=== PATIENT | male | born 1955 | race Caucasian/White ===

== ENCOUNTER 2018-07-19 04:48 | Inpatient (IN) ==
--- NOTE | 2018-07-14 08:31 | History & Physical Report ---
Date of Service July 14, 2018 Date of Surgery: 07/19/18 Assessment & Plan (1) Osteoarthritis of right knee: Further care discussed with patient and at this point in time has failed conservative measures and would like to proceed with a Right total knee replacement at [facility] on 07-19-18, surgery was initially postponed due to elevated A1C but has since come down to an acceptable level. Plan on discharge will be home with home health physical therapy. DVT prophalaxis with TEDs, SCDs and will also place on aspirin 81 mg p.o. b.i.d. for a month postop. Patient will have follow up appointment in our office two weeks post op for staple removal and re-evaluation. Patient otherwise has no other questions or concerns and would like to proceed with surgical intervention. History of Present Illness Chief Complaint: Right knee pain Primary Care Provider: Cindy Shah DO Mr Jovel is a 62 year old male who complains of right knee pain, presents for pre -op evaluation prior to right total knee replacement at [facility] on 07/19/18. He presents with pain and stiffness on the right side and is chronic non- traumatic. The symptoms occur intermittently and has been gradually worsening. The pain is described as aching and sharp. The symptoms occur intermittently. The patient is experiencing pain in the following location: anterior aspect on the right side. He rates his worst pain as 7/10. He rates his current pain as 3/ 10. The symptoms are aggravated by activities of daily living including walking , standing, ascending stairs, descending stairs and squatting. In addition to right knee pain the patient is also experiencing stiffness and limping. Patient had cortisone injection on 11/18/17 that helped for 2 months at that time. patient has undergone a left total knee replacement in the past and is doing well. Allergies Allergy/AdvReac Type Severity Reaction Status Date / Time Penicillins Allergy Unknown unknown Verified 07/10/18 12:38 Home Medications Home Medications Medication Instructions Recorded Confirmed Type Trulicity 1 dose SC WK 07/10/18 07/10/18 History Vitamin D3 1 dose PO QAM 07/10/18 07/10/18 History aspirin 81 mg PO HS 07/10/18 07/10/18 History atenolol 50 mg PO QAM 07/10/18 07/10/18 History atorvastatin 40 mg PO PM 07/10/18 07/10/18 History duloxetine 30 mg PO QAM 07/10/18 07/10/18 History gabapentin 300 mg PO BID 07/10/18 07/10/18 History lisinopril 20 mg PO QAM 07/10/18 07/10/18 History metformin 1,000 mg PO BID 07/10/18 07/10/18 History Past Med/Surg History Medical History Depression Diabetes mellitus, type 2 Hyperlipidemia Hypertension Osteoarthritis Peripheral neuropathy Surgical History History of colonoscopy History of tooth extraction History of total knee replacement LEFT Family History Brother Family history of diabetes mellitus Father Family history of diabetes mellitus Mother Family history of diabetes mellitus Sister Family history of diabetes mellitus Social History Current Living Situation: Significant Other Other Information That Helps Us Care for You: No Feels Safe at Home: Yes Safety Concerns: Feels Safe At This Time Smoking Status: Never smoker Do You Dip or Chew Tobacco: No Second Hand Exposure: No Hx Alcohol Use: Yes Alcohol Intake Frequency: holidays/special occasions only Hx Substance Use: No Beliefs That Will Affect Care: None Preferred Language: Tunisian Communication Ability: Effective Machine Technician Required: No Review of Systems All systems reviewed & are unremarkable except as noted in HPI & below Physical Exam 2 Vital Signs (Past 24 Hours): BP 152/88 Pulse 82 Constitutional: WD/WN, vitals as above no acute distress Respiratory: normal respiratory effort, lungs clear to auscultation no respiratory distress and no labored breathing Cardiovascular: RRR, no murmur, no edema Heart Sounds: no murmur Gastrointestinal (Abdomen): normal bowel sounds, soft, nontender, no hepatosplenomegaly Musculoskeletal: Right Knee Physical Exam patient ambulates with a slight limp, clinical has neutral alignment, +1 suprapatellar effusion, tenderness present mostly over medial joint line and lesser extent over quad insertion. mild crepitation with motion, negative patellar apprehension , knee is ligamentously stable with valgus and varus stress, Ash's Negative, Guerrero's - medial positive, anterior drawer Negative, no extensor lag, Pain with Active range of motion, also passive painful ROM, Range of motion 0/3/120. No pain with active/passive ROM of ankle. Lower Extremity Strength normal. Lower Extremity Neuro-vascular is normal Skin: no rashes, warm and dry Results & Data Diagnostic Findings Right Knee X-ray: 4 views of the Right knee dated 05/05/18 show advanced degenerative changes to the right knee, with findings showing narrowing of the medial compartment and patello-femoral joint with patellar spurring noted, calcification at quad insertion superior patella, there is osteophyte formation and subchondral sclerosis noted. overall varus alignment. no acute bony pathology noted, no loose bodies.
--- NOTE | 2018-07-14 12:28 | Anesthesiology Consultation ---
Addendum entered and electronically signed by Luiza Wolfe 07/17/18 09:59: Addendum (Blank) Addendum Patient acceptable risk for surgery. Original Note: Date of Service July 14, 2018 Assessment & Plan (1) Encounter for pre-operative examination: Plan: - PCP= 06/28/18= diabetes "at goal" and "may schedule his surgery from my standpoint." - Check BSG AM DOS Chart Review Chart Review: Acceptable Risk for Surgery and Patient seen in Pre Admission Testing Consults Requested none Teaching & Discussion Pre-Anesthesia Teaching/Discussion Notes: Instructed NPO after midnight before surgery,except medications with 15 cc of water. Medication instructions provided according to the PAT guidelines. ASA ASA3 Proposed Anesthesia Anesthesia Type: MAC Spinal Regional Regional Laterality: Right Site: Adductor Canal Risk / Benefits Reviewed With: PT / POA / Parent / Guardian, Accepts Plan and Informed Consent Obtained NPO Date Last Intake of Fluids: 07/18/18 Time Last Intake of Fluids: 21:00 Date Last Intake of Solids: 07/18/18 Time Last Intake of Solids: 21:00 History Surgery Operation Date: 07/19/18 07:00 Proposed Procedures p Right Total Knee Arthroplasty - John Rivera DO Height/Weight Height: 5 ft 8 in Weight: 109.6 kg Allergies Allergy/AdvReac Type Severity Reaction Status Date / Time Penicillins Allergy Unknown unknown Verified 07/19/18 05:42 meloxicam AdvReac KIDNEY Verified 07/19/18 05:42 IMPAIRMENT Medications Home Medications Medication Instructions Recorded Confirmed Last Taken Trulicity 1 dose SC WK 07/10/18 07/19/18 07/14/18 13:00 Vitamin D3 1 dose PO QAM 07/10/18 07/19/18 07/18/18 07:00 aspirin 81 mg PO HS 07/10/18 07/19/18 07/18/18 21:00 atenolol 50 mg PO QAM 07/10/18 07/19/18 07/19/18 04:30 atorvastatin 40 mg PO PM 07/10/18 07/19/18 07/18/18 21:00 duloxetine 30 mg PO QAM 07/10/18 07/19/18 07/19/18 04:30 gabapentin 300 mg PO BID 07/10/18 07/19/18 07/19/18 04:30 lisinopril 20 mg PO QAM 07/10/18 07/19/18 07/18/18 07:00 metformin 1,000 mg PO BID 07/10/18 07/19/18 07/18/18 21:00 Active Medications Generic Name Dose Route Start Last Admin Trade Name Freq PRN Reason Stop Dose Admin Acetaminophen 1,000 mg 07/19/18 06:00 07/19/18 06:19 Tylenol PO 07/19/18 18:00 1,000 mg PREOP MIRELLA Administration Celecoxib 200 mg 07/19/18 06:00 07/19/18 06:26 Celebrex PO 07/19/18 18:00 Not Given PREOP MIRELLA Dexamethasone 8 mg 07/19/18 06:00 07/19/18 06:19 Decadron PO 07/19/18 18:00 8 mg PREOP MIRELLA Administration Famotidine 20 mg 07/19/18 06:00 07/19/18 06:19 Pepcid PO 07/19/18 18:00 20 mg PREOP MIRELLA Administration Gabapentin 600 mg 07/19/18 06:00 07/19/18 06:20 Neurontin PO 07/19/18 18:00 300 mg PREOP MIRELLA Administration Lactated Ringer's 1,000 mls @ 999 mls/hr 07/19/18 06:00 07/19/18 06:01 Lr IV 07/19/18 18:00 999 mls/hr .Q1H1M MIRELLA Administration Beta Romel Beta Romel Taken Within 24 Hours: Yes (2100 07/18/2018) Past Medical History Medical History CKD (chronic kidney disease) Depression Diabetes mellitus, type 2 Hyperlipidemia Hypertension Obesity Osteoarthritis Peripheral neuropathy Past Family History Family History Brother Family history of diabetes mellitus Father Family history of diabetes mellitus Mother Family history of diabetes mellitus Sister Family history of diabetes mellitus Past Surgical History Surgical History History of colonoscopy History of tooth extraction History of total knee replacement LEFT Past Anesthesia History No Hx of Anesthesia Complications and No Family Hx of Anesthesia Complications History of PONV No Motion Sickness Screening History of Motion Sickness: No Social History Smoking Status: Never smoker Do You Dip or Chew Tobacco: No Hx Alcohol Use: Yes alcohol intake frequency: holidays/special occasions only Hx Substance Use: No substance use type: does not use Exercise / Class Metabolic Activity III < 4 Walking/Shop/Light housework Review of Systems Patient denies chest pain, shortness of breath, dyspnea on exertion, wheezing, palpitations. Physical Exam Vital Signs Last Vital Signs Temp 36.5 C 07/19/18 05:59 Pulse 62 07/19/18 05:59 Resp 20 07/19/18 05:59 BP 149/96 H 07/19/18 05:59 Pulse Ox 98 07/19/18 05:59 VITALS BP 107/67 P 55 TEMP 97.8 SP02 97%RA RESP 18 Full neck and c-spine range of motion. Full TMJ range of motion. TMD 3 finger breaths Mallampati Score 2 Dentition: upper partial Lungs: clear throughout to auscultation Cardiac: regular rate and rhythm, no murmurs noted Spine: normal Carotid arteries: negative bruit Extremities: no edema Trimmed ng ENMT Mouth: + dentures Thyromental Distance: > or= 3.5 Finger Breadths Mallampati Class: II Neck normal visual inspection, trachea midline, + short neck, + thick neck and + facial hair Respiratory normal respiratory effort Auscultation: lungs clear to auscultation bilaterally Cardiovascular Rate/Rhythm: regular rate and regular rhythm Heart Sounds: no murmur Vessels: no carotid bruit Musculoskeletal Spine: lumbar spine normal to inspection; normal cervical ROM Neurologic moves all extremities Motor/Sensory: + sensory deficit (LE's-diabetic PN) Psychiatric Orientation: alert and oriented x 3 Testing Electrocardiogram Date: 07/14/18 SB at 59bpm. Laboratory Results 07/14/18 12:45 Blood Type O Positive 07/14/18 12:45 Antibody Screen NEGATIVE 07/14/18 12:45 PT 10.2 Seconds (9.0-12.0) 07/14/18 12:45 INR 1.0 (0.9-1.1) 07/14/18 12:45 APTT 30.1 Seconds (21.0-31.0) 07/14/18 12:45 Urine Color Yellow 07/14/18 Unknown Urine Appearance Clear (Clear) 07/14/18 Unknown Urine pH 5.0 (4.5-7.5) 07/14/18 Unknown Ur Specific [place] 1.022 (1.000-1.030) 07/14/18 Unknown Urine Protein Negative (Negative) 07/14/18 Unknown Urine Glucose (UA) Negative (Negative) 07/14/18 Unknown Urine Ketones Negative (Negative) 07/14/18 Unknown Urine Nitrite Negative (Negative) 07/14/18 Unknown Ur Leukocyte Esterase Negative (Negative) 07/14/18 Unknown 07/14/18 Unknown Urine Culture - Final Urine,Clean Catch Gram positive cocci 07/19/18 05:13 POC Glucose 122 H No sensitivities to follow per urine culture report. 06/22/18 SODIUM 142 POTASSIUM 4.8 CHLORIDE 103 CO2 26 BUN 19 CREATININE 1.5 GLUCOSE 102 HGBA1C 7.2%
--- NOTE | 2018-07-14 12:38 | PAT Medication Instructions ---
Medication Instructions Date of Service July 14, 2018 Home Medications Trulicity 1 dose SC WK Vitamin D3 1 dose PO QAM aspirin 81 mg PO HS atenolol 50 mg PO QAM atorvastatin 40 mg PO PM duloxetine 30 mg PO QAM gabapentin 300 mg PO BID lisinopril 20 mg PO QAM metformin 1,000 mg PO BID Continue as directed Trulicity 1 dose SC WK DO NOT take the morning of surgery Vitamin D3 1 dose PO QAM lisinopril 20 mg PO QAM metformin 1,000 mg PO BID Take morning of surgery With a small sip of water, OTHERWISE NOTHING TO EAT OR DRINK AFTER MIDNIGHT: atenolol 50 mg PO QAM duloxetine 30 mg PO QAM gabapentin 300 mg PO BID Other Notes If you have any questions please call us at [phone] or [phone] or [phone] or [phone]
[2018-07-14 13:46] LABS: Basophils # (auto) 0.04 K/uL (0-0.2); Basophils % (auto) 0.7 %; Eosinophils # (auto) 0.34 K/uL (0-0.5); Eosinophils % (auto) 5.7 %; Hematocrit (blood only) 41.3 % (42-52); Hemoglobin 13.8 g/dL (14.0-18.0); Immature Granulocytes # (auto) 0.01 K/uL (0.00-0.02); Immature Granulocytes % (auto) 0.2 %; Lymphocytes # (auto) 1.91 K/uL (1.2-3.4); Lymphocytes % (auto) 32.2 %; Mean Corpuscular Hgb Conc 33.4 g/dL (32-36); Mean Corpuscular Volume 89.6 fL (80-100); Mean Platelet Volume 10.7 fL (7.4-10.4); Monocytes # (auto) 0.56 K/uL (0.11-0.59); Monocytes % (auto) 9.4 %; Neutrophils # (auto) 3.07 K/uL (1.4-6.5); Neutrophils % (auto) 51.8 %; Platelet Count 239 K/uL (130-400); RDW Coefficient of Variation 13.1 % (11.5-14.5); RDW Standard Deviation 42.6 fL (36.4-46.3); Red Blood Count 4.61 M/uL (4.7-6.1); White Blood Count 5.93 K/uL (4.8-10.8)
[2018-07-14 13:56] LABS: Partial Thromboplastin Ratio 1.2; Partial Thromboplastin Time 30.1 Seconds (21.0-31.0); Prothrombin Time 10.2 Seconds (9.0-12.0)
[2018-07-14 13:57] LABS: Appearance Urine Clear (Clear); Bilirubin Urine Negative (Negative); Color Urine Yellow; Glucose Urine UA Negative (Negative); Ketones Urine Negative (Negative); Leukocyte Esterase Urine Negative (Negative); Nitrite Urine Negative (Negative); Protein Urine Negative (Negative); Specific Gravity Urine 1.022 (1.000-1.030); Urobilinogen Urine Negative (Negative)
[2018-07-19] MEDS ORDERED: GABAPENTIN 300 MG x 2 PO SCH (06:00)
[2018-07-19] MEDS ORDERED: FAMOTIDINE 20 MG TAB PO SCH (06:00)
[2018-07-19] MEDS ORDERED: CLINDAMYCIN 600 MG/54 ML BAG IV SCH ×2 (06:00)
[2018-07-19] MEDS ORDERED: dexAMETHasone 4 MG TAB PO SCH (06:00)
[2018-07-19] MEDS ORDERED: ACETAMINOPHEN 500 MG TAB PO SCH (06:00)
[2018-07-19] MEDS ORDERED: CeleBREX 200 MG CAP PO SCH (06:00)
[2018-07-19] MEDS ORDERED: ROPIVACAINE 0.5% HCL/PF 150 MG, BUPIVACAINE 0.5% MPF 30 ML, EPINEPHrine 30MG/30ML (OR U... INFIL SCH (06:00)
[2018-07-19] MEDS ORDERED: TRANEXAMIC ACID 1,000 MG **IV Pre-op IV SCH (06:00)
[2018-07-19] MEDS: LR 500ML BOLUS, THEN 15ML/HR IV SCH ×3 (06:01→10:46)
[2018-07-19] MEDS ORDERED: BUPIVACAINE 0.5 % 5 MG/1 ML PF 10ML VIAL ONE (06:21)
[2018-07-19] MEDS ORDERED: ROPIVACAINE 0.5% 5 MG/ML 30 ML VIAL ONE (06:22)
[2018-07-19] MEDS ORDERED: EPINEPHrine INJ 1 MG/ML AMP ONE (06:22)
[2018-07-19] MEDS ORDERED: TRANEXAMIC ACID 1,000 MG **IV Intra-op IV SCH (06:30)
[2018-07-19] MEDS ORDERED: ORTHO JOINT ANESTHETIC ONE (06:35)
[2018-07-19] MEDS ORDERED: POVIDONE-IODINE OP SOLN 30 ML BTL ONE (06:35)
[2018-07-19] MEDS ORDERED: BACITRACIN INJ 50,000 UNIT VIAL ONE (06:35)
[2018-07-19] MEDS ORDERED: fentaNYL citrate 100 MCG/2 ML VIAL ONE (06:48)
[2018-07-19] MEDS ORDERED: MIDAZOLAM HCL 1 MG/ML 2ML VIAL ONE (06:48)
--- NOTE | 2018-07-19 07:02 | History & Physical Bridge Note ---
Date of Service July 19, 2018 History & Physical Bridge Note I have examined the patient, reviewed the History & Physical and in the interval since the performance of the History & Physical I have noted the following changes of clinical significance: no changes noted
[2018-07-19] MEDS ORDERED: PROPOFOL IV EMULSION 10 MG/ML 20 ML VIAL IV ONE ×4 (07:15→08:09)
[2018-07-19] MEDS ORDERED: LIDOCAINE HCL 2% 2 ML VIAL/AMP(20MG/ML) INFIL ONE (08:09)
[2018-07-19] MEDS ORDERED: GLYCOPYRROLATE 0.2 MG/ML VIAL ONE (08:09)
--- NOTE | 2018-07-19 08:10 | Operative Report ---
Post Operative Report Pre & Post Diagnosis Operation Date: 07/19/18 07:00 Pre-Op Diagnosis: Right Knee Advanced Degenerative Joint Disease Post-Op Diagnosis: Right Knee Advanced Degenerative Joint Disease Procedure Operation Date: 07/19/18 07:00 Actual Procedures p Right Total Knee Arthroplasty(Right) utilizing journey to non-bloc total knee arthroplasty size 7 femur 7 tibia 12 poly-38 oval patella- John Rivera DO Surgeon John Rivera DO Tube Bender Hand David SHAIKH Estimated Blood Loss 5 Findings Consistent with Post-Op Diagnosis Patient presents with severe end-stage tricompartmental degenerative joint disease right knee varus alignment subchondral cystic changes marginal osteophytes moderate to large effusion 7 degree flexion contracture no response to conservative therapy including physical therapy anti-inflammatories relative rest activity modification corticosteroid injections Visco supplementation patient previously undergone successful left total knee arthroplasty patient presents today for right total knee arthroplasty Specimens Bone and cartilage Drains Medium bore Hemovac Complications none Disposition Accompanied Patient To Recovery: No Disposition: Recovery Room Indications Patient presents as a 62-year-old white male with severe end-stage tricompartmental degenerative joint disease right knee no response to conservative management including physical therapy anti-inflammatories relative rest activity modification corticosteroid injections Visco supplementation the above intraoperative findings of bone to bone eburnation cyst sub-subchondral cystic changes marginal osteophytes were all noted times surgery patient is failed attempts at conservative management as well as bracing presents today for right total knee arthroplasty Description of Procedure After proper prepping and draping of the Right lower extremity anterior midline incision was made over the region of the extensor extensor mechanism after meticulous hemostasis was obtained and maintained in subcutaneous tissues a medial parapatellar incision was made The patella was subluxed lateralward the medial lateral gutter were cleaned from any hypertrophic synovitis and scar tissue of the distal femoral block was placed and the distal femoral osteotomy cut was made subsequently the chamfers anterior and posterior osteotomy cuts were made utilizing the 4-in-1 block the tibia was subsequently subluxed anteriorward medial and ateral meniscal remnants were excised in their entirety remnants of the anterior and posterior cruciate ligaments were excised in their entirety excellent exposure of the proximal tibia was obtained the tibial osteotomy guide was placed on the proximal tibial osteotomy cut was made once again the knee was irrigated with copious amounts of sterile saline solution the patella was subsequently everted lateralward thickened scar tissue around the patella was removed the patella was subsequently cut utilizing a freehand technique and was drilled prepared for final preparation and placement of patella socially flexion-extension gaps were checked and the equal and symmetric trials were placed to the appropriate femoral and tibial trials with poly-spacer being placed for equal flexion and extension gaps and full range of motion including extension to 0 and flexion to 140 the trial components after having been taken to recovery range of motion was subsequently removed meticulous hemostasis was obtained and maintained subsequently a knee block injection of joint cocktail including ropivacaine 0.5% 150 mg. Bupivacaine 0.5 % epinephrine 1-200,030 mL's toradol 30 mg dexamethasone 4 mg ketamine 10 mg clonidine 100 micrograms normal saline solution 30 mg was infiltrated into the soft tissues of the posterior knee medial lateral gutters and periosteal synovium special attention was paid to protect neurovascular structures at all times subsequently trial components having been removed the knee was irrigated with sterile saline solution. debris was removed the proximal tibia was subsequently prepared and was made ready for the placement of the tibial component tibial component was also cemented and tamped into position the femoral component was subsequently placed and cemented in the position the patellar component was subsequently cemented in position because hemostasis once again obtained and maintained wound having been thoroughly irrigated with debridement and debridement lavage was performed as well as a medial parapatellar incision closed with #1 Vicryl in interrupted fashion subcutaneous was closed with #2 Vicryl skin was closed with skin clips. PA-C was necessary for prepping and drapping as well as wound closure of deep fascia Sub cutaneous tissue and skin and was necessary for the case. A sterile compressive dressing was placed patient was taken to recovery in stable condition of report dictated by Miguel I attest to the content of the Intraoperative Record and any orders documented therein. Any exceptions are noted below. I attest to the content of the Intraoperative Record and any orders documented therein. Any exceptions are noted below.
[2018-07-19] MEDS ORDERED: ePHEDrine sulfate 50 MG/ML AMP IV PRN (08:59)
[2018-07-19] MEDS ORDERED: ATROPINE SULFATE 0.1 MG/ML 10ML SYR IV PRN (08:59)
--- NOTE | 2018-07-19 09:27 | XRay Report ---
XR knee RT 2V routine CLINICAL HISTORY: Surgical Post Op DEGENERATIVE ARTHRITIS COMPARISON: 05/05/2018 DISCUSSION: There are postsurgical changes of a total right knee arthroplasty and patellar resurfacin g. There is an overlying surgical drain. There is gas present within the soft tissues consistent with recent surgery. The femoral and tibial components appear well seated. IMPRESSION: Postsurgical changes of a total right knee arthroplasty. Electronically signed by: Luis Rodriguez M.D. 07/19/2018 9:25 AM
--- NOTE | 2018-07-19 09:52 | Anesthesiology Progress Note ---
Date of Service July 19, 2018 Anesthesia Post Procedure Vital Signs Vital Signs: Temp Pulse Pulse Resp BP Pulse Ox 07/19/18 09:40 36.4 C L 68 16 110/71 95 07/19/18 09:30 77 17 97/65 L 95 07/19/18 09:20 77 18 105/63 98 07/19/18 09:10 81 16 113/66 100 07/19/18 09:00 36.6 C 81 19 130/79 95 07/19/18 05:59 36.5 C 62 20 149/96 H 98 Pain Intensity Right Knee: Pain Intensity: 0 Notes Mental Status: alert / awake / arousable Patient Amnestic to Procedure: Yes Nausea / Vomiting: adequately controlled Pain: adequately controlled Airway Patency, RR, SpO2: stable & adequate BP & HR: stable & adequate Hydration State: stable & adequate Neuraxial Anesthesia: was administered and sensory block is resolving Anesthetic Complications: no major complications apparent
[2018-07-19] MEDS ORDERED: HYDROmorphone INJ 0.5 MG/0.5 ML SYR IV PRN (10:24)
[2018-07-19] MEDS ORDERED: ONDANSETRON INJ 2 MG/ML 2 ML VIAL IV PRN (10:24)
[2018-07-19] MEDS ORDERED: NALOXONE HCL 0.4 MG/1 ML VIAL/CARP IV PRN (10:24)
[2018-07-19] MEDS ORDERED: ALUMINUM/MAGNESIUM SUSP 30 ML UDC PO PRN (10:24)
[2018-07-19] MEDS ORDERED: TAMSULOSIN HCL 0.4 MG CAP PO PRN (10:24)
[2018-07-19] MEDS ORDERED: SODIUM CHLORIDE 0.9% 1000ML 1,000 ML IV SCH (10:24)
[2018-07-19] MEDS ORDERED: BISACODYL 10 MG SUPP PR PRN (10:24)
[2018-07-19] MEDS ORDERED: MAGNESIUM HYDROXIDE SUSP 30 ML UDC PO PRN (10:24)
[2018-07-19] MEDS ORDERED: PHARMACY GLYCEMIC MGMT CONSULT PRN (11:04)
[2018-07-19] MEDS ORDERED: GLUCAGON FOR INJ 1 MG VIAL SQ PRN (11:12)
[2018-07-19] MEDS ORDERED: GLUCOSE 40% GEL 15 GM TUBE PO PRN (11:12)
[2018-07-19] MEDS ORDERED: DEXTROSE 50% 50 ML SYRINGE IV PRN (11:12)
[2018-07-19] MEDS ORDERED: CARBOHYDRATES FOR HYPOGLYCEMIA PO PRN (11:12)
[2018-07-19] MEDS ORDERED: GLUCOSE 10 TABS/TUBE PO PRN (11:12)
[2018-07-19] MEDS: INSULIN ASPART 100 UNITS/ML 3 ML PEN SC SCH ×3 (12:57→21:34)
[2018-07-19] MEDS: ACETAMINOPHEN 500 MG TAB PO SCH ×2 (13:45→21:36)
[2018-07-19] MEDS ORDERED: INSULIN GLARGINE SOLOSTAR 100 UNITS/ML 3 ML PEN SC ONE (15:30)
[2018-07-19] MEDS: CLINDAMYCIN 600 MG in DEXTROSE 5% 50 ML IV SCH ×2 (16:07→22:10)
--- NOTE | 2018-07-19 16:09 | Pharmacy Report ---
Glycemic Control Consultation - Date of Service July 19, 2018 - Scope Scope: Glycemic Pharmacist consulted by Nikhil Morel on 07/19/18 for glycemic control and to write orders per [facility] inpatient glycemic control protocol - Objective Weight: 109.6 kg Accuchecks BSG (last 24hrs): 07/19/18 07/19/18 07/19/18 05:13 09:04 11:52 POC Glucose 122 H 131 H 135 H - Recent Pertinent Medications Outpatient Anti-diabetic Regimen: * metformin 1000 mg PO BID + Trulicity SQ weekly * A1c pending Risk Factors for Insulin Resistance: * Steroids: Orthomix + dexamethasone 8 mg PO pre-op * Diet: T2DM - Assessment & Plan Assessment & Plan: ASSESSMENT: * Mr. Jovel is a 62 yr old T2DM male admitted for R TKA * Andrew is maintained on metformin plus Trulicity as an outpatient with unknown glycemic control * Will target BSG less than 150 mg/dL to reduce the risk of post operative infection/complications * Will start weight based SQ basal plus bolus insulin while admitted * Novolog dosing will be based on weight/stress 3 for POD #0 due to administration of steroids pre-op PLAN FOR INPATIENT GLYCEMIC CONTROL: * Holding outpatient oral diabetes medications * Basal insulin * Lantus 20 units SQ x 1, then per scale at HS: * 0 units for BSG of 140 mg/dL or less * 10 units for BSG greater than 140 mg/dL * Bolus insulin * NovoLog per scale ACHS or Q6hrs while NPO * Goal Range: Low 110 mg/dL - High 140 mg/dL * Correction Factor: 20 mg/dL/unit * Nutritional / Prandial insulin per carb ratio of 1 unit per 7 grams CHO consumed * Overnight checks at 00 and 04 for POD #0 * Please note that the plan above was derived based on current level of insulin resistance and hospital stress. These recommendations are appropriate for inpatient admission only. Plan of care upon discharge will need to be reassessed to avoid potential outpatient hypo/hyperglycemia. Thank you.
[2018-07-19] MEDS: FERROUS GLUCONATE 324 MG TAB PO SCH (16:11)
[2018-07-19] MEDS ORDERED: INSULIN GLARGINE SOLOSTAR 100 UNITS/ML 3 ML PEN SC SCH (21:00)
[2018-07-19] MEDS: ATORVASTATIN 40 MG TAB PO SCH (21:09)
[2018-07-19] MEDS: DOCUSATE SODIUM 100 MG CAP PO SCH (21:10)
[2018-07-19] MEDS: GABAPENTIN 300 MG CAP PO SCH (21:10)
[2018-07-19] MEDS: SENNA 8.6 MG TAB PO SCH (21:10)
[2018-07-19] MEDS: ASPIRIN 81 MG ECTAB PO SCH (21:10)
[2018-07-20] MEDS: INSULIN ASPART 100 UNITS/ML 3 ML PEN SC SCH ×6 (00:40→21:18)
[2018-07-20] MEDS: ACETAMINOPHEN 500 MG TAB PO SCH ×3 (05:59→21:24)
[2018-07-20 06:58] LABS: Hematocrit (blood only) 34.9 % (42-52); Hemoglobin 11.7 g/dL (14.0-18.0); Mean Corpuscular Hgb Conc 33.5 g/dL (32-36); Mean Corpuscular Volume 88.4 fL (80-100); Mean Platelet Volume 9.9 fL (7.4-10.4); Platelet Count 223 K/uL (130-400); RDW Coefficient of Variation 12.8 % (11.5-14.5); RDW Standard Deviation 41.4 fL (36.4-46.3); Red Blood Count 3.95 M/uL (4.7-6.1); White Blood Count 17.32 K/uL (4.8-10.8)
--- NOTE | 2018-07-20 07:30 | Orthopedic Progress Note ---
Date of Service July 20, 2018 Assessment & Plan (1) History of total right knee replacement (TKR): POD #1 s/p Right TKA pt/ot dvt proph with MANSI/SCD/ASA plan for d/c home with HHPT when stable, will recheck after PT today Subjective POD #1 s/p Right TKA denies CP/SOB denies Fever/chills pain 06/29 Physical Exam 2 Vital Signs (Past 24 Hours): Last Vital Signs Temp 36.6 C 07/20/18 06:51 Pulse 56 L 07/20/18 06:51 Resp 19 07/20/18 06:51 BP 114/69 07/20/18 06:51 Pulse Ox 96 07/20/18 06:51 Constitutional: WD/WN, vitals as above no acute distress Musculoskeletal: Right Leg: NVDI, calf SNT, negative fernando sign. DP palpable, able to wiggle toes/ankle movement without difficulty. dressing clean dry and intact. drain output as noted below: Laboratory Results WBC 17.32 K/uL (4.8-1 0.8) H 07/20/18 06:41 RBC 3.95 M/uL (4.7-6. 1) L 07/20/18 06:41 Hgb 11.7 g/dL (14.0-1 8.0) L 07/20/18 06:41 Hct 34.9 % (42-52) L 07/20/18 06:41 MCV 88.4 fL (80-100) 07/20/18 06:41 MCH 29.6 pg (25-34) 07/20/18 06:41 MCHC 33.5 g/dL (32-36) 07/20/18 06:41 RDW Std Deviation 41.4 fL (36.4-46. 3) 07/20/18 06:41 RDW Coeff of [place] 12.8 % (11.5-14.5 ) 07/20/18 06:41 Plt Count 223 K/uL (130-400 ) 07/20/18 06:41 MPV 9.9 fL (7.4-10.4) 07/20/18 06:41 Immature Gran % (A uto) 0.2 % 07/14/18 12:45 Neut % (Auto) 51.8 % 07/14/18 12:45 Lymph % (Auto) 32.2 % 07/14/18 12:45 Christian % (Auto) 9.4 % 07/14/18 12:45 Eos % (Auto) 5.7 % 07/14/18 12:45 Baso % (Auto) 0.7 % 07/14/18 12:45 Immature Gran # (A uto) 0.01 K/uL (0.00-0 .02) 07/14/18 12:45 Neut # (Auto) 3.07 K/uL (1.4-6. 5) 07/14/18 12:45 Lymph # (Auto) 1.91 K/uL (1.2-3. 4) 07/14/18 12:45 Christian # (Auto) 0.56 K/uL (0.11-0 .59) 07/14/18 12:45 Eos # (Auto) 0.34 K/uL (0-0.5) 07/14/18 12:45 Baso # (Auto) 0.04 K/uL (0-0.2) 07/14/18 12:45 PT 10.2 Seconds (9.0 -12.0) 07/14/18 12:45 INR 1.0 (0.9-1.1) 07/14/18 12:45 APTT 30.1 Seconds (21. 0-31.0) 07/14/18 12:45 PTT Ratio 1.2 07/14/18 12:45 POC Glucose 143 (70-99) H 07/20/18 03:43 Urine Color Yellow 07/14/18 Unknown Urine Appearance Clear (Clear) 07/14/18 Unknown Urine pH 5.0 (4.5-7.5) 07/14/18 Unknown Ur Specific Gravit y 1.022 (1.000-1.0 30) 07/14/18 Unknown Urine Protein Negative (Negati ve) 07/14/18 Unknown Urine Glucose (UA) Negative (Negati ve) 07/14/18 Unknown Urine Ketones Negative (Negati ve) 07/14/18 Unknown Urine Blood Negative (Negati ve) 07/14/18 Unknown Urine Nitrite Negative (Negati ve) 07/14/18 Unknown Urine Bilirubin Negative (Negati ve) 07/14/18 Unknown Urine Urobilinogen Negative (Negati ve) 07/14/18 Unknown Ur Leukocyte Kandi ase Negative (Negati ve) 07/14/18 Unknown Hepatitis C Ab Scr een Neg (Neg) 07/19/18 05:30 Blood Type O Positive 07/14/18 12:45 Antibody Screen NEGATIVE 07/14/18 12:45 Vital Signs Temp 36.6 C 07/20/18 06:51 Pulse 56 L 07/20/18 06:51 Resp 19 07/20/18 06:51 BP 114/69 07/20/18 06:51 Pulse Ox 96 07/20/18 06:51 Intake & Output 07/19/18 07/20/18 07/20/18 18:59 06:59 18:59 Intake Total 5383.666 / 5383.66 6 514 / 514 Output Total 385 / 385 150 / 150 Balance 4998.666 / 4998.66 6 364 / 364 Weight 109.6 kg Intake: IV 1364.666 / 1364.66 6 54 / 54 Cleocin 600 mg In D5w 50 ml @ 54 / 54 54 / 54 100 mls/hr IV Q8H [facility] Rx#: [id number] CLEOCIN 600 mg In 54 ml @ 100 54 / 54 mls/hr IV PREO P [facility] Rx#: [id number] Lr 1,000 ml @ 999 mls/hr IV . 800 / 800 Q1H1M [facility] Rx#: [id number] Nss 1000ML 1,0 00 ml @ 100 mls/ 346.666 / 346.666 hr IV .Q10H [facility] Rx#:[id number] Cyklokapron 1, 000 mg In Sodium 110 / 110 Chloride 100 m l @ 660 mls/hr IV TODAY@0600 [facility] Rx#:[id number] IV Perioperative 1700 / 1700 Oral 1999 / 1999 460 / 460 Other 319 / 319 Output: Urine 250 / 250 Estimated Blood Loss 5 / 5 Drain Output 130 / 130 150 / 150 Right Knee Hem ovac 130 / 130 150 / 150 Other: Other Intake Criss rce Post op LR # Unmeasured Voi ds 1
[2018-07-20 07:33] LABS: BUN Creatinine Ratio 20.1 (10-20); Creatinine Clr Calc Pharmacy 51.8 ml/min; Est GFR (African American) 45.8; Est GFR (Non-African American) 39.5; Potassium 4.6 mmol/L (3.5-5.1)
[2018-07-20 08:17] LABS: Estimated Average Glucose 148 mg/dl
[2018-07-20] MEDS: CHOLECALCIFEROL 1,000 UNITS TAB PO SCH (08:29)
[2018-07-20] MEDS: ASPIRIN 81 MG ECTAB PO SCH ×2 (08:29→21:25)
[2018-07-20] MEDS: FERROUS GLUCONATE 324 MG TAB PO SCH ×2 (08:30→17:01)
[2018-07-20] MEDS: LISINOPRIL 20 MG TAB PO SCH (08:30)
[2018-07-20] MEDS: ATENOLOL 50 MG TABLET PO SCH (08:30)
[2018-07-20] MEDS: DOCUSATE SODIUM 100 MG CAP PO SCH ×2 (08:30→21:26)
[2018-07-20] MEDS: GABAPENTIN 300 MG CAP PO SCH ×2 (08:30→21:23)
[2018-07-20] MEDS: MULTIVITAMIN TAB PO SCH (08:30)
[2018-07-20] MEDS: DULOXETINE HCL 30 MG CAP PO SCH (08:30)
[2018-07-20] MEDS ORDERED: INSULIN GLARGINE SOLOSTAR 100 UNITS/ML 3 ML PEN SC SCH (09:00)
--- NOTE | 2018-07-20 09:33 | Anesthesiology Progress Note ---
Date of Service July 20, 2018 Anesthesia Post Procedure Vital Signs Vital Signs: Temp Pulse Pulse Resp BP Pulse Ox 07/20/18 06:51 36.6 C 56 L 19 114/69 96 07/20/18 03:50 36.6 C 63 18 111/71 96 07/19/18 23:28 36.5 C 58 L 18 116/69 94 07/19/18 15:36 36.3 C L 54 L 18 123/82 95 07/19/18 13:00 61 16 121/75 95 07/19/18 12:10 68 16 109/69 96 07/19/18 11:15 62 16 126/80 91 07/19/18 10:42 62 16 110/71 96 07/19/18 10:10 36.5 C 66 18 105/64 96 07/19/18 09:50 72 15 108/69 95 07/19/18 09:40 36.4 C L 68 16 110/71 95 Pain Intensity Right Knee: Pain Intensity: 0 Notes Mental Status: alert / awake / arousable and participated in evaluation Patient Amnestic to Procedure: Yes Nausea / Vomiting: adequately controlled Pain: adequately controlled Airway Patency, RR, SpO2: stable & adequate Hydration State: stable & adequate Neuraxial Anesthesia: was administered and sensory block is resolving Anesthetic Complications: no major complications apparent and Pt Satisfied with anesthetic care
--- NOTE | 2018-07-20 11:10 | Pharmacy Report ---
Pharmacy Glycemic Short Note 2 - Date of Service July 20, 2018 - Glycemic Short BSG Results (Last 24 hours): 07/19/18 07/19/18 07/19/18 11:52 17:00 21:12 Glucose POC Glucose 135 H 172 H 190 H 07/19/18 07/20/18 07/20/18 23:58 03:43 06:41 Glucose 161 H POC Glucose 164 H 143 H 07/20/18 07:57 Glucose POC Glucose 140 H OUTPATIENT ANTIDIABETIC REGIMEN: * metformin 1000 mg PO BID + Trulicity SQ weekly * A1c 6.8% 07/20/18 ASSESSMENT: * Mr. Jovel is a 62 yr old T2DM male POD #1 s/p R TKA * Andrew is maintained on metformin plus Trulicity as an outpatient with unknown glycemic control * Will target BSG less than 150 mg/dL to reduce the risk of post operative infection/complications * Will hold off on resuming metformin d/t Scr trending upward * Fasting BSG of 140 mg/dL is at goal: will give one more dose of Lantus this AM. I anticipate no further basal insulin being needed after this dose. * Post prandial BSGs were slightly above goal yesterday. I anticipate improvement since it has been > 24 hours since administration of steroids. PLAN FOR INPATIENT GLYCEMIC CONTROL: * Holding outpatient oral diabetes medications * Basal insulin * Lantus 10 units SQ this AM * Bolus insulin * NovoLog per scale ACHS or Q6hrs while NPO * Goal Range: Low 110 mg/dL - High 140 mg/dL * Correction Factor: 20 mg/dL/unit * Carb ratio: 1 units for every 7 grams CHO PLAN FOR DISCHARGE: * A1c of 6.8% on 07/20/18 is at goal * Recommend continuation of current outpatient regimen on discharge as long as Scr returns to baseline as patient is on metformin
[2018-07-20] MEDS: SODIUM CHLORIDE 0.9% 1000ML 1,000 ML IV SCH (12:57)
[2018-07-20] MEDS: OXYCODONE HCL IR 5 MG TAB (IMMEDIATE RELEASE) PO PRN (17:01)
[2018-07-20] MEDS: SENNA 8.6 MG TAB PO SCH (21:25)
[2018-07-20] MEDS: ATORVASTATIN 40 MG TAB PO SCH (21:26)
[2018-07-21] MEDS: SODIUM CHLORIDE 0.9% 1000ML 1,000 ML IV SCH (00:21)
[2018-07-21] MEDS: OXYCODONE HCL IR 5 MG TAB (IMMEDIATE RELEASE) PO PRN ×2 (05:17→09:40)
[2018-07-21] MEDS: ACETAMINOPHEN 500 MG TAB PO SCH (05:36)
[2018-07-21 06:17] LABS: BUN Creatinine Ratio 18.9 (10-20); Calcium 8.3 mg/dl (8.5-10.1); Creatinine Clr Calc Pharmacy 55.5 ml/min; Est GFR (African American) 49.7; Est GFR (Non-African American) 42.9; Potassium 4.1 mmol/L (3.5-5.1)
[2018-07-21] MEDS: ATENOLOL 50 MG TABLET PO SCH (08:53)
[2018-07-21] MEDS: FERROUS GLUCONATE 324 MG TAB PO SCH (08:53)
[2018-07-21] MEDS: ASPIRIN 81 MG ECTAB PO SCH (08:54)
[2018-07-21] MEDS: DULOXETINE HCL 30 MG CAP PO SCH (08:54)
[2018-07-21] MEDS: LISINOPRIL 20 MG TAB PO SCH (08:54)
[2018-07-21] MEDS: GABAPENTIN 300 MG CAP PO SCH (08:54)
[2018-07-21] MEDS: DOCUSATE SODIUM 100 MG CAP PO SCH (08:54)
[2018-07-21] MEDS: MULTIVITAMIN TAB PO SCH (08:54)
[2018-07-21] MEDS: CHOLECALCIFEROL 1,000 UNITS TAB PO SCH (08:54)
[2018-07-21] MEDS: INSULIN ASPART 100 UNITS/ML 3 ML PEN SC SCH (08:57)
--- NOTE | 2018-07-21 10:34 | Pharmacy Report ---
Pharmacy Glycemic Short Note 2 - Date of Service July 21, 2018 - Glycemic Short BSG Results (Last 24 hours): 07/20/18 07/20/18 07/20/18 11:51 16:53 21:04 Glucose POC Glucose 115 H 118 H 173 H 07/21/18 07/21/18 07/21/18 05:17 05:26 08:05 Glucose 133 H POC Glucose 129 H 144 H OUTPATIENT ANTIDIABETIC REGIMEN: * metformin 1000 mg PO BID + Trulicity SQ weekly * A1c 6.8% 07/20/18 ASSESSMENT: * Mr. Jovel is a 62 yr old T2DM male POD #2 s/p R TKA * Outpatient antidiabetic agents have been on hold for admission. Pt receiving weight based SQ basal bolus insulin regimen for inpatient use. BSGs well controlled with current dosing. * Will continue to taper insulin dosing in order to prep for discharge today. * Will target BSG less than 150 mg/dL to reduce the risk of post operative infection/complications * Will hold off on resuming metformin today d/t elevated Scr. Continue Novolog instead of metformin. PLAN FOR INPATIENT GLYCEMIC CONTROL: * Holding outpatient oral diabetes medications * Basal insulin * D/C; no longer needed at this time * Bolus insulin: continue while metformin on hold. * NovoLog per scale ACHS or Q6hrs while NPO * Goal Range: Low 110 mg/dL - High 140 mg/dL * Correction Factor: 20 mg/dL/unit * Carb ratio: 1 units for every 8 grams CHO PLAN FOR DISCHARGE: * A1c of 6.8% on 07/20/18 is at goal * Recommend continuation of current outpatient regimen on discharge as long as Scr returns to baseline as patient is on metformin. * Ok to continue metformin per updated FDA dosing guidelines when CrCl > 30 ml/ min AND patient already tolerating well. * If a change in therapy is preferred, may consider SGLT2 inhibitor vs TZD vs NORTON * Feel free to contact glycemic [facility] if more detailed recommendations needed.
--- NOTE | 2018-07-21 10:38 | Orthopedic Progress Note ---
Date of Service July 21, 2018 Assessment & Plan (1) History of total right knee replacement (TKR): POD #2 s/p Right TKA pt/ot dvt proph with MANSI/SCD/ASA plan for d/c home with HHPT today Subjective POD #1 s/p Right TKA denies CP/SOB denies Fever/chills pain /10. Pain this AM upon waking up but the pain medicines have controlled it. Physical Exam 2 Vital Signs (Past 24 Hours): Last Vital Signs Temp 37.0 C 07/21/18 07:12 Pulse 68 07/21/18 08:53 Resp 17 07/21/18 07:12 BP 113/76 07/21/18 08:53 Pulse Ox 96 07/21/18 07:12 Constitutional: WD/WN, vitals as above Musculoskeletal: Knee: + surgical incision (Well approximated.); knee normal to inspection, no deformity, no skin erythema, no ecchymosis, no crepitation with knee ROM, no valgus alignment and no varus alignment Neurologic: normal touch/pain/proprioception (Dorsiflexion and plantarflexion normal right lower leg.) Psychiatric: A+Ox3, euthymic affect
--- NOTE | 2018-07-25 18:54 | Discharge Summary ---
DISCHARGE DIAGNOSIS: Degenerative joint disease, right knee. SECONDARY DIAGNOSES: Depression, diabetes mellitus type 2, hyperlipidemia, hypertension, osteoarthritis, peripheral neuropathy. CONSULTS: None. COMPLICATIONS: None. PROCEDURES: Right total knee arthroplasty performed by Dr. Rivera 07/19/2018. BRIEF HISTORY: As dictated in history and physical. HOSPITAL SUMMARY: The patient was admitted on the above-noted date and had above-noted surgery performed which he tolerated well. On the first postoperative day, patient was remaining stable. Vital signs are stable and afebrile. They had no complaints and pain was controlled. Dressings were clean, dry and intact. Neurovascular is intact. Calves are soft, nontender. Toes are mobile and they were started on physical therapy protocol and continued on DVT prophylaxis and pain management. Plans were for home health services whenever ready for discharge. By 07/21/2018, patient continued to remain stable. Vital signs are stable and afebrile. They had no complaints and pain was controlled. The patient did have some mild pain earlier that morning but pain medication was working well. Surgical incision was well approximated and normal to inspection. Neurovascular is intact and the patient was progressing with physical therapy and it was felt she could be discharged to home for further physical therapy and care with home health services. For further review, please see chart. LABORATORY AND X-RAY DATA: As per chart. DISCHARGE INSTRUCTIONS: The patient was discharged to home in satisfactory condition on or 07/21/2018. DIET: Diabetic. ACTIVITY: Weightbearing as tolerated on the right lower extremity. Follow TK instruction sheets and special care instructions as noted. Follow up with Dr. Rivera in 2 weeks. The patient to call for appointment if one has not been made for you. DISCHARGE MEDICATIONS: Acetaminophen 1000 mg p.o. q. 8 hours, aspirin 81 mg p.o. b.i.d., Doxycycline 100 mg p.o. b.i.d., oxycodone 5-10 mg p.o. q. 6 hours, Senokot 17.2 mg p.o. at bedtime. Resume home meds as listed.
== END 2018-07-21 11:30 | disposition home health service (06) | DRG 470 ==
LOC: ASU 04:48 → 3E 09:10